=== PATIENT | female | born 1975 | race Caucasian/White ===

== ENCOUNTER 2016-06-18 07:21 | Emergency (ER) | payer OTHER | END 2016-06-18 09:43 | disposition home or self-care (01) | LOC: ER 07:21 | DX: R10.13 Epigastric pain (principal); R00.0 Tachycardia, unspecified; R51 Headache; E07.9 Disorder of thyroid, unspecified; F41.9 Anxiety disorder, unspecified; F41.0 Panic disorder [episodic paroxysmal anxiety]; Z90.710 Acquired absence of both cervix and uterus; Z90.89 Acquired absence of other organs; Z79.899 Other long term (current) drug therapy; Z88.0 Allergy status to penicillin | CPT/HCPCS: 36415; 96374; 96375; J2550 ==